=== PATIENT | female | born 1970 | race Caucasian/White ===

== ENCOUNTER → 2016-07-25 | Outpatient (CLI) | payer BC | END | disposition home or self-care (01) | LOC: NUC 06:53 | DX: K44.9 Diaphragmatic hernia without obstruction or gangrene (principal) | CPT/HCPCS: 78264; A9541 ==

== ENCOUNTER → 2016-10-11 | Outpatient (CLI) | payer BC | END | disposition home or self-care (01) | LOC: CDC 12:45 | DX: K44.9 Diaphragmatic hernia without obstruction or gangrene (principal) | CPT/HCPCS: 93000 ==

== ENCOUNTER 2016-10-18 08:47 | Day surgery (SDC) | payer BC ==
[~2016-10-18] VITALS: Ht 181.6 cm; Wt 98.0 kg
[~2016-10-18 08:47] MED LIST: AMOXICILLIN500 MG PO; GAVISCON TABLE1 EACH PO; LEVOTHYROXINE100 MCG PO; VENTOLIN HFA18 GM IH; ZANTAC150 MG PO
[2016-10-18 09:17] VITALS: BP 136/91
[2016-10-18 15:10] VITALS: BP 124/79
[2016-10-18 19:30] VITALS: BP 130/75
[2016-10-19 04:46] VITALS: BP 126/73
[2016-10-19 06:26] LABS: EOSINOPHIL (%) 0 % (0-5); HEMATOCRIT 40.2 % (36.0-46.0); IMMATURE GRANULOCYTE (%) 0.3 % (0.0-0.7); INSTRUMENT ABS NEUTROPHIL CT 9.9 K/uL; LYMPHOCYTE COUNT 1.2 K/uL (1.0-2.8); MCH 29.4 PG (29.0-34.0); MCHC 33.6 G/DL (30.0-36.0); MCV 87.6 FL (83-99); MEAN PLAT.VOLUME 11.3 uM^3 (9.5-12.4); MONOCYTE (%) 6.2 % (3-12); MONOCYTE COUNT 0.7 K/uL (0-0.8); NEUTROPHIL (%) 83.7 % (45-76); NEUTROPHIL COUNT 9.9 K/uL (1.8-6.4); PLATELET COUNT 217 K/uL (156-360); RBC DIS.WIDTH-CV 12.4 % (11.8-14.6); RBC DIS.WIDTH-SD 39.8 % (39-53); RED BLOOD COUNT 4.59 M/uL (3.80-5.20); WHITE BLOOD COUNT 11.9 K/uL (4.1-10.2)
[2016-10-19 06:53] LABS: ALKALINE PHOSPHATASE 70 IU/L (3-129); ANION GAP 11 MEQ/L (2-14); CHLORIDE 106 MEQ/L (99-109); GFR ESTIMATE (CALCULATED) > 59 mL/min/; GLUCOSE 103 mg/dL (70-99); SAMPLE HEMOLYSIS CHECK 0; SAMPLE ICTERIC CHECK 0; SAMPLE LIPEMIA CHECK 0; SODIUM 142 MEQ/L (136-147); TOTAL BILIRUBIN 0.5 MG/DL (0.0-1.0); UREA NITROGEN (BUN) 8 mg/dL (9-23)
[2016-10-19 07:08] VITALS: BP 135/95
[2016-10-19 11:08] VITALS: BP 123/82
[2016-10-19] MEDS ORDERED: DILAUDID2 MG PO (11:29)
[2016-10-19] MEDS ORDERED: COLACE100 MG PO (11:29)
[2016-10-19] MEDS ORDERED: ZOFRAN4 MG PO (11:52)
== END 2016-10-19 15:31 | disposition home or self-care (01) ==
LOC: SDC → 2EAST 14:07 → 2SOUTH 14:07 → ENRESERV 14:10 → SDC 15:02 → 2EAST 15:08
PROVIDERS: Surgery
DX: K21.9 Gastro-esophageal reflux disease without esophagitis (principal); K44.9 Diaphragmatic hernia without obstruction or gangrene; E03.9 Hypothyroidism, unspecified; J45.909 Unspecified asthma, uncomplicated; Z80.0 Family history of malignant neoplasm of digestive organs
CPT/HCPCS: 80053; 85025; 88304; 94799; G0378; J0131; J0330; J1100; J1170; J1650; J2250; J2405; J2710; J2765; J3010; J7120